=== PATIENT | female | born 1990 | race Caucasian/White ===

== ENCOUNTER 2017-02-11 18:32 | Emergency (ER) | payer OTHER ==
[2017-02-11 19:57] VITALS: BP 116/78
[2017-02-11] MEDS ORDERED: Naproxen TAB* 250 MG PO ONE (20:31)
[2017-02-11] MEDS ORDERED: Cyclobenzaprine TAB* 10 MG PO ONE (20:31)
--- NOTE | 2017-02-11 20:49 | UC ---
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 HX BACK STRAIN NO RADIATION OF PAIN NO BOWEL/BLADDER DYSFUNCTION - History of Current Complaint Chief Complaint: UCBackPain Stated Complaint: BACK PAIN Time Seen by Provider: 02/11/17 20:10 Hx Obtained From: Patient Hx Last Menstrual Period: 02/10/17 Onset/Duration: Sudden Onset, Lasting Hours Timing: Constant Severity Initially: Moderate Severity Currently: Moderate Pain Intensity: 6 Pain Scale Used: 0-10 Numeric Back Pain: Is Discrete @ - LEFT SIDED BACK PAIN Character: Aching, Throbbing Aggravating: Movement Alleviating: Rest Related History: Similar Episode Dx As - BACK STRAIN - Allergies/Home Medications Allergies/Adverse Reactions: Allergies Allergy/AdvReac Type Severity Reaction Status Date / Time No Known Allergies Allergy Verified 02/11/17 19:57 PMH/Surg Hx/FS Hx/Imm Hx Previously Healthy: Yes Endocrine History Of: Reports: Thyroid Disease - Surgical History Surgical History: Yes Surgery Procedure, Year, and Place: D&C. foot surgery - Family History Known Family History: Negative: Cardiac Disease, Hypertension, Diabetes - Social History Alcohol Use: None Substance Use Type: None Smoking Status (MU): Former Smoker When Did the Patient Quit Smoking/Using Tobacco: 2009 Review of Systems Constitutional: Negative Skin: Negative Eyes: Negative ENT: Negative Respiratory: Negative Cardiovascular: Negative Gastrointestinal: Negative Genitourinary: Negative Motor: Negative Neurovascular: Negative Musculoskeletal: Myalgia Neurological: Negative Psychological: Negative All Other Systems Reviewed And Are Negative: Yes Physical Exam Triage Information Reviewed: Yes Appearance: Well-Appearing, No Pain Distress, Well-Nourished Vital Signs: Initial Vital Signs Temp 98.6 F 02/11/17 19:53 Pulse 82 02/11/17 19:53 Resp 16 02/11/17 19:53 BP 116/78 02/11/17 19:53 Pulse Ox 100 02/11/17 19:53 Vital Signs Reviewed: Yes Eyes: Positive: Conjunctiva Clear ENT: Negative: Hearing grossly normal, Pharynx normal, Pharyngeal erythema, Nasal congestion, Nasal drainage, TMs normal, Tonsillar exudate, Trismus, Muffled/hoarse voice Neck: Positive: Supple, Nontender, No Lymphadenopathy Respiratory: Positive: Lungs clear, Normal breath sounds, No respiratory distress, No accessory muscle use Cardiovascular: Positive: RRR, No Murmur Musculoskeletal: Positive: ROM Intact, No Edema Neurological: Positive: Alert Psychological Exam: Normal Skin Exam: Normal Back Pain Course/Dx - Differential Dx/Diagnosis Provider Diagnoses: LEFT LUMBAR MYOFASCIAL STRAIN /SPASM Discharge - Discharge Plan Condition: Stable Disposition: HOME Prescriptions: Cyclobenzaprine TAB* [Flexeril TAB*] 5 mg PO TID PRN #21 tab PRN Reason: Spasms Naproxen [Naproxen 500 MG TABS] 500 mg PO BID PRN #30 tab PRN Reason: Pain Patient Education Materials: Low Back Strain (ED) Referrals: Evelina Guan MD [Primary Care Provider] - 1 Week Additional Instructions: DON'T TAKE MUSCLE RELAXANT AND DRIVE OR WORK PT CONSULT Images Front/Back of Body, Lg ([place]): 1 - TENDER
== END 2017-02-11 20:50 | disposition home or self-care (01) ==
LOC: UCCORT 18:32
DX: S39.012A Strain of muscle, fascia and tendon of lower back, initial encounter (principal); X50.0XXA Overexertion from strenuous movement or load, initial encounter; Y93.E2 Activity, laundry; Y92.9 Unspecified place or not applicable; M62.830 Muscle spasm of back; E07.9 Disorder of thyroid, unspecified; Z87.891 Personal history of nicotine dependence
CPT/HCPCS: 99212; A9270-GY; G0463

== ENCOUNTER 2017-05-02 20:00 | Emergency (ER) | payer MEDICAID ==
[2017-05-02 20:30] VITALS: BP 118/72
--- NOTE | 2017-05-02 20:55 | UC ---
Throat Pain/Nasal Ran HPI - HPI Summary HPI Summary: L ear pain, ST, nasal ran, cough starting 2 days ago. Has 6-year-old son at home. Denies fever or trouble breathing. - History of Current Complaint Chief Complaint: UCRespiratory Stated Complaint: THROAT,EAR & HEAD PAIN Time Seen by Provider: 05/02/17 20:42 Hx Obtained From: Patient Hx Last Menstrual Period: BEGINNING APRIL ?: No Onset/Duration: Gradual Onset, Lasting Days Severity: Moderate Cough: Productive Associated Signs & Symptoms: Positive: Nasal Discharge. Negative: Fever, Vomiting - Allergies/Home Medications Allergies/Adverse Reactions: Allergies Allergy/AdvReac Type Severity Reaction Status Date / Time No Known Allergies Allergy Verified 05/02/17 20:30 PMH/Surg Hx/FS Hx/Imm Hx Endocrine History: Thyroid Disease - Surgical History Surgical History: Yes Surgery Procedure, Year, and Place: D&C. foot surgery - Family History Known Family History: Negative: Cardiac Disease, Hypertension, Diabetes - Social History Lives: With Family Alcohol Use: None Substance Use Type: None Smoking Status (MU): Current Some Day Smoker When Did the Patient Quit Smoking/Using Tobacco: 2009 Review of Systems Constitutional: Negative Skin: Negative Eyes: Negative ENT: Sore Throat, Ear Ache, Nasal Discharge Respiratory: Cough Cardiovascular: Negative Gastrointestinal: Negative Genitourinary: Negative Motor: Negative Neurovascular: Negative Musculoskeletal: Negative Neurological: Negative Psychological: Negative All Other Systems Reviewed And Are Negative: Yes Physical Exam Triage Information Reviewed: Yes Appearance: Well-Appearing, No Pain Distress, Well-Nourished Vital Signs: Initial Vital Signs Temp 97.9 F 05/02/17 20:27 Pulse 84 05/02/17 20:27 Resp 16 05/02/17 20:27 BP 118/72 05/02/17 20:27 Pulse Ox 100 05/02/17 20:27 Vital Signs Reviewed: Yes Eye Exam: Normal Eyes: Positive: Conjunctiva Clear ENT: Positive: Hearing grossly normal, Pharyngeal erythema, Nasal congestion, TMs normal - post flush, Tonsillar swelling - mild, Other: - L cerumen impaction Neck: Positive: Supple, Tenderness @ - L tonsillar node, Enlarged Nodes @ - L tonsillar Respiratory Exam: Normal Respiratory: Positive: Chest non-tender, Lungs clear, Normal breath sounds, No respiratory distress, No accessory muscle use Cardiovascular Exam: Normal Cardiovascular: Positive: RRR, No Murmur Musculoskeletal Exam: Normal Neurological Exam: Normal Neurological: Positive: Alert Psychological Exam: Normal Skin Exam: Normal Throat Pain/Nasal Course/Dx - Differential Dx/Diagnosis Provider Diagnoses: strep throat. L ear cerumen impaction Discharge - Discharge Plan Condition: Stable Disposition: HOME Prescriptions: Amoxicillin CAP* [Amoxicillin 500 MG CAP*] 500 mg PO TID #29 cap Patient Education Materials: Strep Throat (ED), Cerumen Impaction (ED) Forms: *Work Release Referrals: Evelina Guan MD [Primary Care Provider] -
[2017-05-02] MEDS ORDERED: Amoxicillin CAP* 500 MG PO ONE (21:06)
== END 2017-05-02 21:20 | disposition home or self-care (01) ==
LOC: UCEAST 20:00
DX: J02.0 Streptococcal pharyngitis (principal); H61.22 Impacted cerumen, left ear; E07.9 Disorder of thyroid, unspecified; Z72.0 Tobacco use
CPT/HCPCS: 69209; 87651; 99213; A9270-GY; G0463

== ENCOUNTER 2018-06-20 21:01 | Emergency (ER) | payer OTHER ==
[2018-06-20 21:24] VITALS: BP 112/75
[2018-06-20] MEDS ORDERED: Ciprofloxacin TAB* 250 MG PO ONE (21:50)
--- NOTE | 2018-06-20 21:56 | UC ---
Back Pain HPI - HPI Summary HPI Summary: 28-year-old female with a history of chronic lower back pain and documented MRI degenerative disc disease presents with 3-4 day history of low back pain. She has also noted some suprapubic discomfort. No aggravating or alleviating factors noted. Denies any fever, chills, flank pain, nausea, vomiting, dysuria , frequency, urgency, hematuria, lower extremity weakness, numbness or tingling. She is 3 months and is currently breast-feeding at night. She has not resumed her menses at this time as she is on Depo-Provera. States she was evaluated in [place] for her degenerative disc disease however was at the time and no further treatment was recommended. - History of Current Complaint Chief Complaint: UCBackPain Stated Complaint: BACK PAIN Time Seen by Provider: 06/20/18 21:38 Hx Obtained From: Patient Hx Last Menstrual Period: on Depo Provera ?: No Onset/Duration: Gradual Onset, Lasting Days - 3 Timing: Constant - 33 Severity Currently: Moderate Pain Intensity: 5 Character: Dull Aggravating Factor(s): Nothing Alleviating Factor(s): Nothing Associated Signs And Symptoms: Positive: Abdominal Pain - Suprapubic - Allergies/Home Medications Allergies/Adverse Reactions: Allergies Allergy/AdvReac Type Severity Reaction Status Date / Time No Known Allergies Allergy Verified 06/20/18 21:24 Home Medications: Home Medications Ibuprofen TAB* [Advil TAB*] 200 mg PO ONCE 06/20/18 [History Confirmed 06/20/18] medroxyPROGESTERone ACETATE* [DEPO-Provera] 150 mg IM 06/20/18 [History] PMH/Surg Hx/FS Hx/Imm Hx - Additional Past Medical History Additional PMH: Degenerative disc disease Previously Healthy: Yes - Surgical History Surgical History: Yes Surgery Procedure, Year, and Place: D&C. foot surgery - Family History Known Family History: Negative: Cardiac Disease, Hypertension, Diabetes, Renal Disease - Social History Occupation: Employed Full-time Lives: With Family Alcohol Use: None Substance Use Type: None Smoking Status (MU): Light Every Day Tobacco Smoker Type: Cigarettes Amount Used/How Often: 1/2 ppd When Did the Patient Quit Smoking/Using Tobacco: 2009 Review of Systems Constitutional: Negative Skin: Negative Genitourinary: Negative Motor: Negative Neurovascular: Negative Musculoskeletal: Other: - Low back pain Neurological: Negative Is Patient Immunocompromised?: No All Other Systems Reviewed And Are Negative: Yes Physical Exam Triage Information Reviewed: Yes Appearance: Well-Appearing, No Pain Distress, Well-Nourished Vital Signs: Initial Vital Signs Temp 98.4 F 06/20/18 21:16 Pulse 102 06/20/18 21:16 Resp 17 06/20/18 21:16 BP 112/75 06/20/18 21:16 Pulse Ox 100 06/20/18 21:16 Vital Signs Reviewed: Yes Respiratory: Positive: No respiratory distress Abdomen Description: Positive: No Organomegaly, Soft, Other: - Mild suprapubic tenderness. Negative: Distended, Guarding Musculoskeletal: Positive: Other: - CTL spine nontender. No paraspinous tenderness or spasm noted. Neurological: Positive: Muscle Tone Normal, Other: - Sensation intact Skin Exam: Normal Back Pain Course/Dx - Course Course Of Treatment: 28-year-old female with history of some chronic low back pain and documented degenerative disc disease on MRI presents with a 3-4 day history of low back pain. She also has noted some suprapubic pain although denies any dysuria, frequency, urgency, or hematuria. [id number] urinalysis was positive for leukocytes, nitrites, and blood. She is 3 months and is currently breast-feeding just at night. On exam back is nontender to palpation and no spasm is noted. Based on these findings will treat her for an urinary tract infection using Cipro 250 mg twice a day for 5 days. She is to push fluids. She already has an appointment with her primary care provider scheduled for this . - Differential Dx/Diagnosis Provider Diagnoses: Acute cystitis with hematuria Discharge - Sign-Out/Discharge Documenting (check all that apply): Patient Departure - Discharge Plan Condition: Stable Disposition: HOME Prescriptions: Ciprofloxacin TAB* [Cipro 250 MG Tab*] 250 mg PO BID #10 tab Patient Education Materials: Urinary Tract Infection in Women (ED) Referrals: Jose Antonio Burnham MD [Primary Care Provider] - 3 Days (As scheduled) Additional Instructions: Take Cipro 250 mg 1 tab twice a day for the next 5 days. Be sure to complete the entire course even if you are feeling better. Patient to push plenty of fluids. Use [id number] acetaminophen (Tylenol) or ibuprofen (Advil, Motrin) according to directions as needed for pain. Keep your appointment with your primary care provider as scheduled this . - Billing Disposition and Condition Condition: STABLE Disposition: Home
== END 2018-06-20 22:03 | disposition home or self-care (01) ==
LOC: UCCORT 21:01
DX: N30.01 Acute cystitis with hematuria (principal); F17.210 Nicotine dependence, cigarettes, uncomplicated
CPT/HCPCS: 81003; 84702; 87077; 87086; 87186; 99212; A9270-GY; G0463

== ENCOUNTER 2018-07-16 11:32 | Emergency (ER) | payer OTHER ==
--- OUTSIDE RECORDS SUMMARY | 2018-07-16 11:38 | XMS REPORT ---
:1990 External Reference #:[id number] Author Organization [employer] Address [address] [place] [address] Phone [phone] Care Team Providers Name Role Phone Patient's Choice Primary Care Physician Unavailable Payers Type Date Identification Numbers Payment Provider Subscriber Commercial Policy Number: [id number] Jose Antonio Chandler PayID: [id number] [address] [place] [id number] Problems Description No Information Family History Date Family Member(s) Problem(s) Comments Mother Heart Disease Mother Thyroid Disease Social History Type Date Description Comments Marital Status Single Lives With Family Work Status Currently Working Clinical Lab Clerk/ physical science aide ETOH Use Denies alcohol use Smoking Patient is a current smoker, smokes every day Recreational Drug Use Denies Drug Use Smoking Heavy tobacco smoker (more than 10 cigarettes/day) Daily Caffeine Consumes on average 2 sodas per day Allergies, Adverse Reactions, Alerts Date Description Reaction Status Severity Comments 07/13/2018 NKDA active Medications Medication Date Status Form Strength Qnty SIG Indications Ordering Provider No Active 07/13/2018 Active Ruiz Jasmine PA-C Vital Signs Date Vital Result Comment 07/13/2018 Height 66 inches 5'6" Weight 155.00 lb BP Systolic Sitting 130 mmHg BP Diastolic Sitting 80 mmHg Pain Level 2 BMI (Body Mass Index) 25.0 kg/m2 Results Description No Information Procedures Description No Information Encounters Type Date Location Provider CPT E/M Dx Office Visit 07/13/2018 1:00p [facility] Sara Tobin PA-C [id number] M54.5 Plan of Care 07/13/2018 - MARGARITA JasmineCM54.5 Low back painNew Xrays:MRI Lumbar Spine W/ OFollow up:After MRI
[2018-07-16 12:08] VITALS: BP 110/63
--- NOTE | 2018-07-16 12:41 | UC ---
Nausea/Vomiting/Diarrhea HPI - HPI Summary HPI Summary: 28 y/o female presents to the urgent care c/o nausea, vomiting and diarrhea since this morning. Pt reports her son had similar symptoms at the beginning of week and has now resolved. Pt states mild abdominal cramping pain 2/10 which is relief w/ gas or BM. She ate breakfast this morning toast and eggs w/o any problem. Pt has not taking any medications to alleviate symptoms. Pt request a note for work. LMP:2017 on Depo shot and she still breast feeding her 4 month old baby at night time. Pt denies fever, urinary symptoms, rashes, SOB, chest pain,, eating outside or recent travel, blood in the stool. - History of Current Complaint Chief Complaint: UCGI Stated Complaint: NAUSEA, VOMITING, DIARRHEA Time Seen by Provider: 07/16/18 12:31 Hx Obtained From: Patient Hx Last Menstrual Period: on Depo Provera Onset/Duration: Gradual Onset, Lasting Hours - 6hrs, Still Present Severity Initially: Mild Severity Currently: Mild Pain Intensity: 2 Pain Scale Used: 0-10 Numeric Location: Diffuse - mild abdominal cramping pain relief w/ BM Character: Cramping Aggravating Factor(s): Nothing Alleviating Factor(s): Bowel Movement, NPO Vomiting Frequency: Daily - 1 episode this morning Vomiting Characteristics: Bilious Diarrhea Presence: Yes Diarrhea Frequency: Daily - 1 episode Diarrhea Characteristics: Watery - Risk Factors Influenza Risk Factors: Negative Surgical Obstruction Risk Factor(s): Negative - Allergies/Home Medications Allergies/Adverse Reactions: Allergies Allergy/AdvReac Type Severity Reaction Status Date / Time No Known Allergies Allergy Verified 07/16/18 12:05 PMH/Surg Hx/FS Hx/Imm Hx Previously Healthy: Yes - Pt denies PMHX - Surgical History Surgical History: Yes Surgery Procedure, Year, and Place: D&C. foot surgery - Family History Known Family History: Positive: Cardiac Disease, Hypertension Negative: Diabetes, Renal Disease Family History: dyslipidemia, hypothyrodism - Social History Occupation: Employed Full-time Lives: With Family Alcohol Use: None Substance Use Type: None Smoking Status (MU): Light Every Day Tobacco Smoker Type: Cigarettes Amount Used/How Often: 1/2 ppd When Did the Patient Quit Smoking/Using Tobacco: 2009 Review of Systems Constitutional: Negative Skin: Negative Eyes: Negative ENT: Negative Respiratory: Negative Cardiovascular: Negative Gastrointestinal: Abdominal Pain - diffuse, Vomiting - 1 epidose this morning, Nausea Genitourinary: Negative Motor: Negative Neurovascular: Negative Musculoskeletal: Negative Neurological: Negative Psychological: Negative Is Patient Immunocompromised?: No All Other Systems Reviewed And Are Negative: Yes Physical Exam - Summary Physical Exam Summary: Vital Signs Reviewed: Yes General:Patient is a well developed and nourished female who is sitting comfortable in the examining table. Patient is not in any acute respiratory distress. Eyes: Positive: Conjunctiva Clear - PERRLA, EOMI, fundi grossly normal ENT: Positive: Normal ENT inspection, Hearing grossly normal, Pharynx normal, TMs normal Neck: Positive: Supple, Nontender, No Lymphadenopathy Respiratory: Positive: Chest non-tender, Lungs clear, Normal breath sounds, No respiratory distress Cardiovascular: Positive: RRR,S1 and S2 present, No Murmur, Pulses Normal, Brisk Capillary Refill Abdomen Description: Positive: Nontender, Abd: Flat with no distention. No surface trauma, scars, incisions. hyperactive bowel sounds present in all four quadrants. No tenderness, guarding, rigidity to palpation. No masses palpated, no pulsation in epigastric area. No organomegaly. Negative Nyssa signs. No periumbilical tenderness. No rebound in the lower quadrants. NT over McBurneys point. Good femoral pulses bilaterally. No hernia noted. No CVAT bilaterally Musculoskeletal: Positive: Strength Intact, ROM Intact, No Edema,FROM in all major joints, no edema, no cyanosis or clubbing. Neuro: Alert and oriented x 3. No acute neurological deficits. Speech is normal. Psychological: WNL Skin: Dry and warm Triage Information Reviewed: Yes Vital Signs: Initial Vital Signs Temp 98.5 F 07/16/18 12:00 Pulse 89 07/16/18 12:00 Resp 14 07/16/18 12:00 BP 110/63 07/16/18 12:00 Pulse Ox 100 07/16/18 12:00 Naus/Vom/Diarrhea Course/Dx - Course Course Of Treatment: 28 y/o female presents to the urgent care c/o nausea, vomiting and diarrhea since this morning. Pt reports her son had similar symptoms at the beginning of week and has now resolved. Pt states mild abdominal cramping pain 2/10 which is relief w/ gas or BM. She ate breakfast this morning toast and eggs w/o any problem. Pt has not taking any medications to alleviate symptoms. Pt request a note for work. LMP:2017 on Depo shot and she still breast feeding her 4 month old baby at night time. Pt denies fever, urinary symptoms, rashes, SOB, chest pain,, eating outside or recent travel, blood in the stool. Hx obtained. PE:WNL. UA ordered: trace of leukoesteraces, Urine test ordered: negative. Urine cultures sent to lab to r/o any abnormality. Pt denies vaginal discharge. Pt will be notified of any abnormality for further treatment. Pt probably w/ a viral grastroenteritis. Pt Rx Zofran PO for Nausea and vomiting, advised to increase fluid intake, eat soft meals, rest. However if symptoms worsen and abdominal pain develops to go Immediately to the ER for further management. Pt explained D/C instructions. Pt understood and agreed w/ plan of care. Pt left the clinic ambulating, A&OX3 - Differential Dx/Diagnosis Differential Diagnoses - Female: Appendicitis, , Gastroenteritis (Viral ), Gastroenteritis (Bacterial), Vomiting, Diarrhea, Colitis Provider Diagnoses: 1- Acute nausea and vomiting. 2- Diarrhea. 3- Viral gastroenteritis Condition At Discharge: Stable Discharge - Sign-Out/Discharge Documenting (check all that apply): Patient Departure - D/C home All imaging exams completed and their final reports reviewed: No Studies - Discharge Plan Condition: Stable Disposition: HOME Prescriptions: Ondansetron ODT TAB* [Zofran 4 MG Odt TAB*] 4 mg PO Q6H PRN #12 tab.odt PRN Reason: Vomiting Patient Education Materials: Gastroenteritis (ED) Forms: *Work Release Referrals: Jose Antonio Burnham MD [Primary Care Provider] - 2 Days Additional Instructions: 1- Please increase fluid intake w/ Gatorade or Pedialyte OTC . Eat small portions and soft meal. rest 2- Urine was sent to lab to r/o any abnormality since you are not presenting w / urinary symptoms or vaginal discharge. You will be notified of the results. 3- Please take Zofran PO as directed if your nausea and vomiting continues. Please avoid breast feeding while taking medication. 4- If you develops fever or abdominal pain increases w/ recurrent episodes of diarrhea and vomiting please take your child to the ER, otherwise f/u with your PCP if diarrhea not resolving in 2-3 days - Billing Disposition and Condition Condition: STABLE Disposition: Home
== END 2018-07-16 13:29 | disposition home or self-care (01) ==
LOC: UCCORT 11:32
DX: R11.2 Nausea with vomiting, unspecified (principal); R19.7 Diarrhea, unspecified; A08.4 Viral intestinal infection, unspecified; F17.210 Nicotine dependence, cigarettes, uncomplicated
CPT/HCPCS: 81003; 84702; 87086; 99212; G0463

== ENCOUNTER 2018-08-03 20:37 | Emergency (ER) | payer OTHER ==
[2018-08-03 21:30] VITALS: BP 104/69
--- NOTE | 2018-08-03 22:03 | UC ---
General HPI - HPI Summary HPI Summary: Sore throat today. son has strep throat. wants to r/o strep throat. - History of Current Complaint Chief Complaint: UCGeneralIllness Stated Complaint: SORE THROAT/EXPOSURE TO STREP Time Seen by Provider: 08/03/18 21:27 Hx Obtained From: Patient Hx Last Menstrual Period: depo provera Onset/Duration: Gradual Onset Timing: Constant Pain Intensity: 5 Alleviating: nothing - Allergy/Home Medications Allergies/Adverse Reactions: Allergies Allergy/AdvReac Type Severity Reaction Status Date / Time No Known Allergies Allergy Verified 08/03/18 21:31 PMH/Surg Hx/FS Hx/Imm Hx Previously Healthy: Yes - Surgical History Surgical History: Yes Surgery Procedure, Year, and Place: D&C. foot surgery - Family History Known Family History: Positive: Cardiac Disease, Hypertension Negative: Diabetes, Renal Disease Family History: dyslipidemia, hypothyrodism - Social History Occupation: Employed Full-time Lives: With Family Alcohol Use: None Substance Use Type: None Smoking Status (MU): Light Every Day Tobacco Smoker Type: Cigarettes Amount Used/How Often: 1/2 ppd When Did the Patient Quit Smoking/Using Tobacco: 2009 - Immunization History Vaccination Up to Date: Yes Review of Systems Constitutional: Negative Skin: Negative Eyes: Negative ENT: Sore Throat Respiratory: Negative Cardiovascular: Negative Gastrointestinal: Negative Genitourinary: Negative Motor: Negative Neurovascular: Negative Musculoskeletal: Negative Neurological: Negative Psychological: Negative Is Patient Immunocompromised?: No All Other Systems Reviewed And Are Negative: Yes Physical Exam Triage Information Reviewed: Yes Appearance: Well-Appearing Vital Signs: Initial Vital Signs Temp 98.4 F 08/03/18 21:27 Pulse 88 08/03/18 21:27 Resp 16 08/03/18 21:27 BP 104/69 08/03/18 21:27 Pulse Ox 100 08/03/18 21:27 Vital Signs Reviewed: Yes Eyes: Positive: Conjunctiva Clear ENT: Positive: Pharyngeal erythema, TMs normal. Negative: Nasal congestion, Nasal drainage Neck: Positive: Supple, Nontender, No Lymphadenopathy Respiratory: Positive: Lungs clear, Normal breath sounds Cardiovascular: Positive: RRR, No Murmur Abdomen Description: Positive: Nontender, No Organomegaly, Soft Bowel Sounds: Positive: Present Musculoskeletal: Positive: ROM Intact Neurological: Positive: Alert Psychological: Positive: Normal Response To Family, Age Appropriate Behavior Skin Exam: Normal Diagnostics - Laboratory Diagnostic Studies Completed/Ordered: rapid strep=neg Course/Dx - Course Course Of Treatment: rapid strep=neg - Differential Dx - Multi-Symptom Provider Diagnoses: sore throat Discharge - Sign-Out/Discharge Documenting (check all that apply): Patient Departure All imaging exams completed and their final reports reviewed: No Studies - Discharge Plan Condition: Stable Disposition: HOME Patient Education Materials: Pharyngitis (ED) Referrals: Jose Antonio Burnham MD [Primary Care Provider] - 7 Days - Billing Disposition and Condition Condition: STABLE Disposition: Home
== END 2018-08-03 22:13 | disposition home or self-care (01) ==
LOC: UCCORT 20:37
DX: J02.9 Acute pharyngitis, unspecified (principal); Z87.891 Personal history of nicotine dependence
CPT/HCPCS: 87651; 99211; G0463

== ENCOUNTER 2019-07-24 09:48 | Emergency (ER) | payer OTHER ==
[2019-07-24 10:48] VITALS: BP 109/70
--- NOTE | 2019-07-24 11:16 | UC ---
UC General HPI - HPI Summary HPI Summary: 1. frequent urination since last week. now low back ache which she gets with uti's and today R back aches but has a hx of this from back issues. no fever/n/v/d. 2. "boil" on R inner thigh x 2 days. no hx MRSA. squeezed it without relief. + area where she shaves. 3. white vaginal discharge with odor x 2 weeks. no hx std. no lesions, abdominal pain or fever. - History of Current Complaint Chief Complaint: UCBackPain Stated Complaint: BACK PAIN,SKIN COMPLAINT Time Seen by Provider: 07/24/19 11:09 Hx Obtained From: Patient Hx Last Menstrual Period: unknown Onset/Duration: Gradual Onset Timing: Constant Pain Intensity: 4 Associated Signs & Symptoms: Negative: Abdominal Pain - Allergy/Home Medications Allergies/Adverse Reactions: Allergies Allergy/AdvReac Type Severity Reaction Status Date / Time No Known Allergies Allergy Verified 07/24/19 10:41 PMH/Surg Hx/FS Hx/Imm Hx Previously Healthy: Yes - Surgical History Surgical History: Yes Surgery Procedure, Year, and Place: D&C. foot surgery - Family History Known Family History: Positive: Cardiac Disease, Hypertension Negative: Diabetes, Renal Disease Family History: dyslipidemia, hypothyrodism - Social History Alcohol Use: Rare Substance Use Type: None Smoking Status (MU): Heavy Every Day Tobacco Smoker Type: Cigarettes Amount Used/How Often: 1/2 ppd When Did the Patient Quit Smoking/Using Tobacco: 2009 - Immunization History Vaccination Up to Date: Yes Review of Systems All Other Systems Reviewed And Are Negative: No Constitutional: Negative: Fever, Chills Genitourinary: Negative: Hematuria, Ulceration/Lesion, Abnormal Bleeding Physical Exam Triage Information Reviewed: Yes Appearance: Well-Appearing Vital Signs: Initial Vital Signs Temp 97.2 F 07/24/19 10:42 Pulse 65 07/24/19 10:42 Resp 20 07/24/19 10:42 BP 109/70 07/24/19 10:42 Pulse Ox 98 07/24/19 10:42 Vital Signs Reviewed: Yes Eyes: Positive: Conjunctiva Clear ENT: Positive: Pharynx normal, TMs normal. Negative: Nasal congestion, Nasal drainage Neck: Positive: Supple, Nontender, No Lymphadenopathy Respiratory: Positive: Lungs clear, Normal breath sounds, No respiratory distress Cardiovascular: Positive: RRR, No Murmur Abdomen Description: Positive: Nontender, No Organomegaly, Soft. Negative: CVA Tenderness (R), CVA Tenderness (L), Distended, Guarding Bowel Sounds: Positive: Present Pelvic Exam: Positive: External Exam Normal, Discharge - MUCOID WHITE WITH FISHY ODOR, Other - cultures obtained.. Negative: Active Bleeding, Cervicitis, Lesions, Mass, Tender w/ Cervical Motion, Tender Adnexa, Tender Uterus Musculoskeletal: Positive: ROM Intact Neurological: Positive: Alert Psychological: Positive: Age Appropriate Behavior Skin Exam: Normal, Other - R inner thigh/groin/buttock junction with slight erythema. 2 small areas of induration but no fluctuance. area where pt has shaved. Mild R inguinal adenopathy. Course/Dx - Differential Dx - Multi-Symptom Differential Diagnoses: Other - 1. u/a supports a uti. no concern for pyelonephritis 2. skin infection R tigh/groin area but nothing to I&D. will tx uti with antibiotic to cover skin as well. 3. pelvic exam most c/w BV. cultures pending. will start Flagyl. - Diagnoses Provider Diagnosis: UTI (urinary tract infection), Folliculitis, Vaginitis Discharge ED - Sign-Out/Discharge Documenting (check all that apply): Patient Departure All imaging exams completed and their final reports reviewed: No Studies - Discharge Plan Condition: Stable Disposition: HOME Prescriptions: Cephalexin CAP* [Keflex CAP*] 500 mg PO TID 10 Days #30 cap metroNIDAZOLE [Flagyl] 500 mg PO BID 7 Days #14 tablet Patient Education Materials: Urinary Tract Infection in Women (DC), Vaginitis ( ED), Folliculitis (ED) Referrals: Jose Antonio Burnham MD [Primary Care Provider] - 7 Days Additional Instructions: STOP SHAVING UNTIL THE SKIN INFECTION CLEARS. - Billing Disposition and Condition Condition: STABLE Disposition: Home
[2019-07-25 12:50] LABS: Chlamydia trachomatis NAA Negative (Negative); Neisseria gonorrhoeae (GC) NAA Negative (Negative)
== END 2019-07-24 11:46 | disposition home or self-care (01) ==
LOC: UCCORT 09:48
DX: N39.0 Urinary tract infection, site not specified (principal); L73.9 Follicular disorder, unspecified; N76.0 Acute vaginitis; F17.210 Nicotine dependence, cigarettes, uncomplicated; L02.425 Furuncle of right lower limb
CPT/HCPCS: 81003; 84702; 87077; 87086; 87186; 87480; 87491; 87510; 87591; 87661; 99212; G0463

== ENCOUNTER 2020-01-29 11:39 | Emergency (ER) | payer OTHER ==
--- NOTE | 2020-01-29 12:47 | UC ---
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 Needs a work note [facility] PMH Previously Healthy: Yes Endocrine/Hematology History: Reports: Hx Thyroid Disease Denies: Hx Diabetes Cardiovascular History: Denies: Hx Hypertension Respiratory History: Denies: Hx Asthma, Hx Chronic Obstructive Pulmonary Disease (COPD) GI History: Denies: Hx Ulcer - Surgical History Surgery Procedure, Year, and Place: D&C. foot surgery Infectious Disease History: No - Family History Known Family History: Positive: Cardiac Disease, Hypertension Negative: Diabetes, Renal Disease Family History: dyslipidemia, hypothyrodism - Social History Alcohol Use: Rare Substance Use Type: Reports: None Smoking Status (MU): Heavy Every Day Tobacco Smoker Type: Cigarettes Amount Used/How Often: 1/2 ppd Length of Time of Smoking/Using Tobacco: 1.5 yr [facility] ROS All Other Systems Reviewed And Are Negative: Yes [facility] PE Telehealth Physical Exam: No tachypnea or distress noted over the phone Neurological: Positive: Alert, Oriented to Person Place, Time Psychiatric: Positive: Normal [facility] Course/Dx Assessment/Plan: Discussed could be tension headache Without significant cough or fever would not recommend testing for COVID at this point Recommend rest, fluids and can use ibuprofen 800 mg every 8 hours as needed - take with food If develop fever and/or worsening cough, recommend further evaluation Provider Diagnoses: Tension headache [facility] Disposition Provider Recommendation for Treatment: Primary Care Physician Telehealth Visit: Patient Consented Verbally to Telehealth Visit - yes Telehealth Patient Statement: The patient should understand that they are communicating with their provider via a secure communication platform and that all the same privacy and confidentiality rules apply. They will also be responsible for copayments or coinsurances that apply to any Telehealth visit. Patient Identifiers: 2 Patient Identifiers Verified for Telehealth Visit - Patient and Telehealth Visit Start Time: 00:40 Telehealth Visit End Time: 00:50 Telehealth Provider Attestation: The above services were appropriate to provide in a Telehealth setting.
== END 2020-01-29 13:00 | disposition home or self-care (01) ==
LOC: UCCORT 11:39
DX: G44.209 Tension-type headache, unspecified, not intractable (principal); F17.210 Nicotine dependence, cigarettes, uncomplicated
CPT/HCPCS: 99211; G0463